=== PATIENT | male | born 1990 | race Two or more races ===

== ENCOUNTER 2019-07-24 05:10 | Emergency (ER) | payer OTHER ==
[2019-07-24 05:43] VITALS: BMI 32.8
--- NOTE | 2019-07-24 06:28 | PDOC ---
History of Present Illness - General Chief Complaint: Laceration Stated Complaint: L ARM LAC Time Seen by Provider: 07/24/19 06:14 History Source: Patient Exam Limitations: No Limitations - History of Present Illness Initial Comments: 07/24/19 07:17 28 yo M with no pmhx presents to the emergency department with left arm laceration sustained at 12am. Per the patient, he does not know his last tetanus shot. He states a clean straight edge knife caused the laceration but denied to describe the nature of the incident. Denies suicidal ideation and ideation of self harm. Denies numbness and weakness in the left arm. Shx: none allergies: nkda social: denies tobacco, alcohol, and substance abuse 07/24/19 14:25 \ Past History - Past Medical History Allergies/Adverse Reactions: Allergies Allergy/AdvReac Type Severity Reaction Status Date / Time No Known Allergies Allergy Verified 07/24/19 06:02 Home Medications: Ambulatory Orders NK [No Known Home Medication] 07/24/19 Asthma: Yes COPD: No - Immunization History Immunization Up to Date: No - Suicide/Smoking/Psychosocial Hx Smoking History: Current some day smoker Information on smoking cessation initiated: No Hx Alcohol Use: Yes Review of Systems - Review of Systems Able to Perform ROS?: Yes Is the patient limited Greek proficient: No Constitutional: No: Chills, Diaphoresis, Fever, Weakness HEENTM: No: Eye Pain, Blurred Vision, Ear Pain, Nose Pain, Throat Pain, Mouth Pain Respiratory: No: Cough, Shortness of Breath, Hemoptysis Cardiac (ROS): No: Chest Pain, Lightheadedness, Palpitations, Syncope, Chest Tightness ABD/GI: No: Constipated, Diarrhea, Nausea, Rectal Bleeding, Vomiting, Tarry Stools : No: Burning, Dysuria, Hematuria, Incontinence Musculoskeletal: No: Back Pain, Joint Pain, Neck Pain Integumentary: Yes: Lesions. No: Bruising, Erythema, Rash Neurological: No: Headache, Numbness, Tremors Psychiatric: No: Change in Appetite Endocrine: No: Unexplained Weight Gain Hematologic/Lymphatic: No: Anemia *Physical Exam - Vital Signs Last Vital Signs Temp Pulse Resp BP Pulse Ox 97.9 F 93 H 17 132/80 07/24/19 05:10 07/24/19 05:10 07/24/19 05:10 07/24/19 05:10 - Physical Exam General Appearance: Yes: Nourished, Appropriately Dressed. No: Apparent Distress, Intoxicated HEENT: positive: EOMI, SUNITA, Normal Voice, Symmetrical, Pharynx Normal, Hearing Grossly Normal. negative: Pale Conjunctivae, Scleral Icterus (R), Scleral Icterus (L), Muffled/Hoarse voice, Pharyngeal Erythema, Tonsillar Exudate, Tonsillar Erythema, Nasal Congestion, Rhinorrhea, Excessive drooling Neck: positive: Trachea midline, Supple. negative: Tender, Lymphadenopathy (R) , Lymphadenopathy (L), Tender lateral, Tender midline Respiratory/Chest: positive: Lungs Clear, Normal Breath Sounds. negative: Chest Tender, Respiratory Distress, Accessory Muscle Use, Rhonchi, Stridor, Wheezing Cardiovascular: positive: Regular Rhythm, Regular Rate, S1, S2. negative: Systolic Murmur Gastrointestinal/Abdominal: positive: Normal Bowel Sounds, Flat, Soft. negative : Tender, Distended, Guarding, Rebound Lymphatic: negative: Adenopathy Musculoskeletal: positive: Normal Inspection. negative: CVA Tenderness, Vertebral Tenderness Extremity: positive: Normal Capillary Refill, Normal Range of Motion, Tender ( left lateral bicep. intact rom. intact strength and sensation), Other (3cm linear laceration without muscle involvement) Integumentary: positive: Normal Color, Dry, Warm Neurologic: positive: marketing effectiveness manager II-XII NML intact, Fully Oriented, Alert, Normal Mood/ Affect, Normal Response, Motor Strength 5/5. negative: Sensory Deficit Procedures - Laceration/Wound Repair Left Lateral Arm Wound Length: 2.6 to 5.0 cm Wound Explored: clean Wound's Depth, Shape: superficial Irrigated w/ Saline: Yes Betadine Prep: Yes Anesthesia: 1% Lidocaine Amount of Anesthetic (ccs): 5 Wound Debrided: minimal Wound Repaired With: Sutures Suture Size/Type: 4:0 Number of Sutures: 9 Sterile Dressing Applied: Yes Medical Decision Making - Medical Decision Making 28 yo M with no pmhx presents to the emergency department with left arm laceration sustained at 12am. Per the patient, he does not know his last tetanus shot. Initial vitals; Initial Vital Signs Temp Pulse Resp BP 97.9 F 93 H 17 132/80 07/24/19 05:10 07/24/19 05:10 07/24/19 05:10 07/24/19 05:10 work up: laceration repair. refer to procedure note. patient to receive xray. signed out to Dr. Hannah *DC/Admit/Observation/Transfer Diagnosis at time of Disposition: Laceration of shoulder Qualifiers: Encounter type: initial encounter Laterality: left Qualified Code(s): S41.012A - Laceration without foreign body of left shoulder, initial encounter - Discharge Dispostion Disposition: HOME Condition at time of disposition: Stable - Referrals Referrals: Keesha Lira MD [Primary Care Provider] - Hector Paulino DO [Staff Physician] - - Patient Instructions Printed Discharge Instructions: DI for Cellulitis -- Adult, DI for Laceration Repair, DI for Suture Removal Additional Instructions: You came into the ER with shoulder pain and a laceration on your shoulder. We placed 9 stitches in your shoulder that need to be removed in 7-10 days. Please make sure to come back to the ER for suture removal. If your arm has any signs of infection you must return to the ER immediately as this can be life threatening. If your arm hurts, becomes red, you get a fever, have chills, or have any other signs or symptoms that are stated on the attached handouts please return to the ER immediately. Come back if you have any other new or worsening concerns. Please make sure to follow up with your PCP in the next 3 to 5 days Thank you for coming to the [facility] ER. We hope you feel better soon! Print Language: [email or web address] - Post Discharge Activity
[2019-07-24] MEDS ORDERED: DIPHTH,PERTUSS(ACELL),TET 0.5 ML DISP.SYRIN IM ONE ×2 (06:29→07:07)
[2019-07-24 07:04] VITALS: TEMP 98
--- NOTE | 2019-07-24 07:33 | PDOC ---
*Physical Exam - Vital Signs Last Vital Signs Temp Pulse Resp BP Pulse Ox 98.0 F 88 18 128/79 100 07/24/19 07:02 07/24/19 07:02 07/24/19 07:02 07/24/19 07:02 07/24/19 07:02 - Physical Exam General Appearance: Yes: Nourished, Appropriately Dressed. No: Apparent Distress HEENT: positive: Normal ENT Inspection, Normal Voice Neck: positive: Supple Respiratory/Chest: positive: Lungs Clear, Normal Breath Sounds. negative: Respiratory Distress Cardiovascular: positive: Regular Rhythm, Regular Rate Vascular Pulses: Dorsalis-Pedis (R): 2+, Doralis-Pedis (L): 2+ Gastrointestinal/Abdominal: positive: Soft Rectal Exam: positive: deferred Lymphatic: negative: Adenopathy Musculoskeletal: positive: Normal Inspection, Other (Bandage in place covering 9 stitches) Extremity: positive: Normal Capillary Refill, Normal Inspection. negative: Normal Range of Motion (mildly decreased shoulder ROM) Integumentary: positive: Normal Color, Dry, Warm Neurologic: positive: Alert, Normal Mood/Affect, Normal Response ED Treatment Course - RADIOLOGY Radiograph Interpretation: Shoulder XR: Left shoulder: Trauma. Possible foreign body 2 views of the left shoulder reveal no sign of fracture or subluxation and no sign of blastic or lytic changes. The AC joint, scapula, ribs and upper humerus are intact. There is no sign of a foreign body or soft tissue air. If symptoms persist, further imaging and orthopedic consultation may be of help. Impression: No acute left shoulder pathology. No sign of a foreign body. - Medications Given in the ED: ED Medications Discontinued Medications Generic Name Dose Route Start Last Admin Trade Name Freq PRN Reason Stop Dose Admin Diphtheria/Tetanus/Acell Pertussis 0.5 ml 07/24/19 06:29 07/24/19 07:13 Boostrix - IM 07/24/19 06:30 0.5 ml .ONCE ONE Administration Medical Decision Making - Medical Decision Making Patient signed out to me from night team pending shoulder XR and re-evaluation Shoulder XR: Left shoulder: Trauma. Possible foreign body 2 views of the left shoulder reveal no sign of fracture or subluxation and no sign of blastic or lytic changes. The AC joint, scapula, ribs and upper humerus are intact. There is no sign of a foreign body or soft tissue air. If symptoms persist, further imaging and orthopedic consultation may be of help. Impression: No acute left shoulder pathology. No sign of a foreign body. Re-assessment: Patient feels well, no longer has pain, and received a tetanus shot in the ER. He requests to be discharged. Disposition: Home with PCP and ortho follow up - Patient will return in 7-10 days to have stitches removed. - Strict return precautions for signs of infection discussed with patient. *DC/Admit/Observation/Transfer Diagnosis at time of Disposition: Laceration of shoulder Qualifiers: Encounter type: initial encounter Laterality: left Qualified Code(s): S41.012A - Laceration without foreign body of left shoulder, initial encounter - Discharge Dispostion Disposition: HOME Condition at time of disposition: Stable Decision to Admit order: No - Referrals Referrals: Keesha Lira MD [Primary Care Provider] - Hector Paulino DO [Staff Physician] - - Patient Instructions Printed Discharge Instructions: DI for Cellulitis -- Adult, DI for Laceration Repair, DI for Suture Removal Additional Instructions: You came into the ER with shoulder pain and a laceration on your shoulder. We placed 9 stitches in your shoulder that need to be removed in 7-10 days. Please make sure to come back to the ER for suture removal. If your arm has any signs of infection you must return to the ER immediately as this can be life threatening. If your arm hurts, becomes red, you get a fever, have chills, or have any other signs or symptoms that are stated on the attached handouts please return to the ER immediately. Come back if you have any other new or worsening concerns. Please make sure to follow up with your PCP in the next 3 to 5 days Thank you for coming to the [facility] ER. We hope you feel better soon! Print Language: YAKUT - Post Discharge Activity
--- NOTE | 2019-07-24 07:42 | PDOC ---
*Physical Exam - Vital Signs Last Vital Signs Temp Pulse Resp BP Pulse Ox 98.0 F 88 18 128/79 100 07/24/19 07:02 07/24/19 07:02 07/24/19 07:02 07/24/19 07:02 07/24/19 07:02 - Physical Exam Comments: 07/24/19 07:36 Gen: [id number], nad LUE: laceration has been repaired with sutures, no active bleeding, dressing applied, neurovasc distal to injury, muscle strength intact, pulses intact, sensation intact ED Treatment Course - Medications Given in the ED: ED Medications Discontinued Medications Generic Name Dose Route Start Last Admin Trade Name Freq PRN Reason Stop Dose Admin Diphtheria/Tetanus/Acell Pertussis 0.5 ml 07/24/19 06:29 07/24/19 07:13 Boostrix - IM 07/24/19 06:30 0.5 ml .ONCE ONE Administration Medical Decision Making - Medical Decision Making 07/24/19 07:37 a/p: 28yo male with lac to LUE -denies si/hi -feels safe at home -will not disclose who injured the patient -lac has been repaired -xray reviewed -tetanus updated -discussed wound care and follow up for suture care -stable for dc to home -pt verbalizes understanding of all instructions *DC/Admit/Observation/Transfer Diagnosis at time of Disposition: Laceration of shoulder Qualifiers: Encounter type: initial encounter Laterality: left Qualified Code(s): S41.012A - Laceration without foreign body of left shoulder, initial encounter - Discharge Dispostion Disposition: HOME Condition at time of disposition: Stable Decision to Admit order: No - Referrals Referrals: Keesha Lira MD [Primary Care Provider] - - Patient Instructions - Post Discharge Activity
[2019-07-24 08:06] VITALS: BP 134/90; PULSE 75
== END 2019-07-24 08:05 | disposition home or self-care (01) ==
LOC: JER 05:10
PROC: 0HQCXZZ Repair Left Upper Arm Skin, External Approach (ICD-10-PCS; principal; 2019-07-24)
PROC: 3E0234Z Introduction of Serum, Toxoid and Vaccine into Muscle, Percutaneous Approach (ICD-10-PCS; 2019-07-24)
DX: S41.112A Laceration without foreign body of left upper arm, initial encounter (principal); W26.0XXA Contact with knife, initial encounter; Y93.89 Activity, other specified; Y92.038 Other place in apartment as the place of occurrence of the external cause; Y99.8 Other external cause status
CPT/HCPCS: 73030-TC-LT-FY; 90715; 99282-25

== ENCOUNTER 2024-04-22 11:28 | Emergency (ER) | payer OTHER ==
[2024-04-22 11:38] VITALS: BP 121/75; PULSE 92; RESP 17; TEMP 97.8; BMI 31.3
[2024-04-22 12:52] LABS: BASO % 0.2 % (0-2.0); EOS % 1.5 % (0-4.5); HEMATOCRIT 43.8 % (35.4-49); HEMOGLOBIN 14.9 GM/dL (11.7-16.9); LYMPH % 30.5 % (8-40); MCH 28.7 pg (25.7-33.7); MEAN CELL VOLUME 84.5 fl (80-96); MEAN PLT VOLUME 7.6 fl (7.5-11.1); MONO % 3.9 % (3.8-10.2); NEUT % 63.9 % (42.8-82.8); PLATELET COUNT 256 10^3/uL (134-434); RBC 5.18 M/mm3 (4.00-5.60); RDW 13.4 % (11.9-15.9); WHITE BLOOD COUNT 7.8 K/mm3 (4.0-10.0)
[2024-04-22 13:24] LABS: ALBUMIN 4.1 g/dl (3.4-5.0); CALCIUM 9.5 mg/dL (8.5-10.1)
[2024-04-22 13:25] LABS: BLOOD UREA NITROGEN 10.6 mg/dL (7-18)
[2024-04-22 13:29] LABS: BILIRUBIN,TOTAL 0.6 mg/dL (0.2-1); TOT PROT 7.5 g/dl (6.4-8.2)
[2024-04-22 13:48] LABS: SYPHILIS W/ RPR CONF NON-REACTIVE (NONREACTIVE)
[2024-04-22 14:15] LABS: HIV INTERPRETATION NEGATIVE (NEGATIVE)
== END 2024-04-22 13:04 | disposition home or self-care (01) ==
LOC: JERFT 11:28
DX: Z77.21 Contact with and (suspected) exposure to potentially hazardous body fluids (principal)
CPT/HCPCS: 36415; 80053; 82465; 82977; 84100; 85025; 86704; 86780; 86803; 87340; 87389; 87517; 99283-25